=== PATIENT | female | born 1965 | race Caucasian/White ===

== ENCOUNTER 2019-12-14 08:26 | Outpatient (CLI) | payer OTHER, SELFPAY ==
--- NOTE | 2019-12-14 08:30 | ECG_ITS ---
Measurements Intervals [place] Rate: 62 P: 22 VA: 202 QRS: 37 QRSD: 74 T: 22 QT: 376 QTc: 384 Interpretive Statements SINUS RHYTHM BORDERLINE R WAVE PROGRESSION, ANTERIOR LEADS BASELINE ARTIFACT- I, II, III, AVR, AVL, AVF, V5-V6 BORDERLINE ECG Electronically Signed On 12-14-2019 8:46:42 [employer] HELPER by Amor Monte D.O.
[2019-12-14 09:53] LABS: Blood Urea Nitrogen 18 mg/dL (7-17); Calcium 9.2 mg/dL (8.4-10.2); Carbon Dioxide 24 mmol/L (22-30); Chloride 98 mmol/L (98-107); Estimated Glomerular Filt Rate > 60; Glucose 222 mg/dL (65-105); Potassium 4.2 mmol/L (3.4-5.0); Sodium 134 mmol/L (137-145)
[2019-12-14 10:29] LABS: Alanine Aminotransferase 21 U/L (4-35); Albumin Level 4.4 g/dL (3.5-5.1); Alkaline Phosphatase 104 U/L (38-126); Amylase 67 U/L (30-110); Aspartate Amino Transferase 33 U/L (14-36); Bilirubin,Total 0.5 mg/dL (0.2-1.3); Lipase 162 U/L (23-300)
== END 2019-12-14 08:27 | disposition home or self-care (01) ==
LOC: ANHSURGERY 08:30
PROVIDERS: Anesthesiology; PCP Nurse Practitioner; Visit Provider Surgery
DX: K81.9 Cholecystitis, unspecified (principal); I10 Essential (primary) hypertension; E11.9 Type 2 diabetes mellitus without complications
CPT/HCPCS: 36415; 80048; 80076; 82150; 83690; 86850; 86900; 86901; 93005

== ENCOUNTER 2019-12-23 00:18 | Day surgery (SDC) | payer OTHER, SELFPAY ==
[2019-12-13 13:38] VITALS: BMI 30.5
[2019-12-23] VITALS (9 sets, daily range): BP systolic 121–150; BP diastolic 73–83; PULSE 51–84; RESP 13–20; TEMP 36.3–36.4; O2SAT 94–100
--- NOTE | 2019-12-23 10:46 | WPDHPUPDATE1 ---
History and Physical Update Update Date/Time: 12/23/19 10:46 History and Physical has been reviewed, including an updated exam of the patient. There are NO changes in the patient's condition. Risks, benefits, and alternatives have been discussed and questions answered. Patient agrees to proceed with procedure.
[2019-12-23] MEDS: LACTATED RINGERS 1,000 ML 30 ML IV CONT ×2 (11:45→15:12)
[2019-12-23 11:49] LABS: Glucose Point of Care 215 (65-105)
--- NOTE | 2019-12-23 12:58 | WPDANESEPPF ---
Anes - Initial Pre Proc Eval Procedure: Operation Date: 12/23/19 13:30 Proposed Procedures p Laparoscopic Cholecystectomy - Tomasz Stephens MD Date/Time: 12/23/19 12:58 Surgeon: Tomasz Stephens MD Pre Op Diagnosis: Chronic Cholecystitis Patient Data Age: 54 Gender: F Height: 5 ft 7 in Weight: 90.4 kg Last Vital Signs Temp 36.4 C L 12/23/19 11:23 Pulse 70 12/23/19 11:23 Resp 20 12/23/19 11:23 BP 150/79 H 12/23/19 11:23 Pulse Ox 99 12/23/19 11:23 Allergies Allergy/AdvReac Type Severity Reaction Status Date / Time Penicillins Allergy Severe Swelling Verified 12/23/19 11:55 of Lip/Tongue/Throat tomato Allergy Severe Swelling Verified 12/13/19 13:38 of Lip/Tongue/Throat Home Medications Medication Instructions Recorded Confirmed Type amlodipine 10 mg PO QAM 10/20/19 12/13/19 History citalopram 40 mg PO QNOON 10/20/19 12/13/19 History ergocalciferol (vitamin D2) 50,000 unit PO WEEKLY 10/20/19 12/13/19 History famotidine 20 mg PO BID 10/20/19 12/13/19 History gemfibrozil 60 mg PO BID 10/20/19 12/13/19 History glipizide 5 mg PO QAM 10/20/19 12/13/19 History hydrochlorothiazide 25 mg PO QAM 10/20/19 12/13/19 History losartan 100 mg PO QAM 10/20/19 12/13/19 History meloxicam 7.5 mg PO QAM 10/20/19 12/13/19 History metformin 1,000 mg PO BID 10/20/19 12/13/19 History metformin 500 mg PO HS 10/20/19 12/13/19 History hyoscyamine sulfate [Levsin] 0.125 mg PO .every 6 hours prn PRN 10/21/19 12/13/19 Rx #30 tablet Laboratory Tests 12/23/19 11:44 POC Capillary Glucose 215 mg/dl H mg/dl (65-105) Patient hx anesthesia problems: none Family hx anesthesia problems: none PMFSH Past Medical History Medical History Cerebral palsied Depression Diabetes mellitus Dyslipidemia Hx of colonic polyps Hypertension Left-sided muscle weakness Vitamin D deficiency Surgical History Surgical History H/O colonoscopy History of hysterectomy Hx of release of tendon Family History Family History Father Diabetes mellitus Social History Social History Smoking status: Never smoker Alcohol intake: never Substance use: never Anes - Eval Final PreProcedure Day of Procedure 12/23/19 12:58 Heart: regular rate and rhythm Lungs: clear to auscultation Airway: Mallampati scale class II and special considerations poor dentition Neurological: alert and oriented Last oral intake: >/= 8 hours ASA classification: III Emergent: no Anesthetic plan: proceed Anesthesia type and monitoring: general ETT and standard monitoring Informed Consent: The patient's anesthetic plan and its attendant risks and benefits were discussed with the patient/family/POA. Questions were solicited and answers provided to the satisfaction of the patient/family/POA.
--- NOTE | 2019-12-23 13:39 | P.OP_ITS ---
Procedure Note - Detailed Date of procedure: 12/23/19 Pre-op diagnosis: Chronic Cholecystitis Acalculous chronic cholecystitis Post-op diagnosis: same Procedure performed: Laparoscopic cholecystectomy Description of procedure: The patient was taken to surgery and induced into general anesthesia. The abdomen was prepped and draped. Trocars were placed in the usual fashion using 0.5% Marcaine with epinephrine and applied Medical optical trocars. A 5 millimeter camera was used. Some adhesions to the gallbladder were taken down so that the entirety of the gallbladder was freed and able to be exposed. The gallbladder was decompressed with a laparoscopic aspirator. The cholecystotomy was closed with a Vicryl endo- loop. The gallbladder was retracted anterosuperiorly. The patient had signi ficant fatty liver and this was making the gallbladder difficult to expose. The liver was somewhat enveloping the gallbladder. An extra 5 mm port was placed in the left mid abdomen. From there, we used a laparoscopic Kitner to retract the medial segment of the left lobe. This retraction allowed the cholecystohepatic triangle and medial aspect of the gallbladder to be better visualized. Traction was placed on the infundibulum. The cystic duct and cystic artery were dissected out very clearly. The gallbladder was dissected off the liver at its lower 3rd. Critical view was achieved. The cystic artery was very small and was cauterized and divided. I securely clipped and divided the cystic duct. The gallbladder was then further retracted so that the peritoneal attachments to the liver could be divided. Once the gallbladder was freed entirely, it was placed in an Endo-Catch bag and retrieved through the 10 11 epigastric trocar site. The epigastric trocar was then replaced. We reviewed the right upper quadrant. It was irrigated and suctioned. All looked good with no evidence of bleeding or bile leakage. We evacuated CO2 and removed the trocar sleeves. Skin wounds were closed with subcuticular 4 O Monocryl skin suture. The wounds were dressed with Exofin surgical adhesive. Patient was awakened and taken to recovery in good condition. Sponge and needle counts were correct x2. Anesthesia: GETA and local (0.5% Marcaine with epinephrine) Surgeon: Tomasz Stephens MD Distribution Center Manager: [place] ALONSO Estimated blood loss (mL): 5 Drains: No Packing: No Pathology: yes (Gallbladder) Complications: None Condition: stable Disposition: PACU Findings: Mild inflammation, no gallstones noted. No biliary ductal dilatation. Significant fatty liver was apparent.
[2019-12-23] MEDS: CLINDAMYCIN 900 MG/NS 50 ML 900 MG/50 ML PIGGYBACK 50 MG IVPB (14:41)
[2019-12-23] MEDS: BUPIVACAINE/EPINEPHRINE 0.5% 30 ML VIAL INFILTRATE (14:45)
[2019-12-23 17:17] LABS: Glucose Point of Care 232 (65-105)
== END 2019-12-23 17:20 | disposition home or self-care (01) ==
PROVIDERS: PCP Nurse Practitioner; Visit Provider Surgery
PROC: 0FT44ZZ Resection of Gallbladder, Percutaneous Endoscopic Approach (ICD-10-PCS; CPT 47562; principal; 2019-12-23 13:30)
DX: K81.1 Chronic cholecystitis (principal); I10 Essential (primary) hypertension; E11.9 Type 2 diabetes mellitus without complications; E78.5 Hyperlipidemia, unspecified; G80.9 Cerebral palsy, unspecified; E55.9 Vitamin D deficiency, unspecified; M62.81 Muscle weakness (generalized); F32.9 Major depressive disorder, single episode, unspecified; Z79.84 Long term (current) use of oral hypoglycemic drugs
CPT/HCPCS: 47562; 88304; J0131; J1100; J1170; J2250; J2405; J2704; J2710; J3010; J7120

== ENCOUNTER 2020-10-18 07:27 | Outpatient (CLI) | payer MEDICARE, SELFPAY ==
[2020-10-18 08:42] LABS: Alanine Aminotransferase 26 U/L (14-59); Aspartate Amino Transferase 21 U/L (15-37); Cholesterol 274 mg/dL (0-200); HDL Direct 27 mg/dL (40-60)
[2020-10-18 08:46] LABS: LDL Cholesterol Calculated 88 mg/dL (<130); Triglycerides 795 mg/dL (0-150)
[2020-10-18 08:47] LABS: LDL Cholesterol Direct 110 mg/dL (0-130)
== END 2020-10-18 07:28 | disposition home or self-care (01) ==
LOC: CHSLAB 07:33
PROVIDERS: PCP Nurse Practitioner
DX: Z79.899 Other long term (current) drug therapy (principal); E78.2 Mixed hyperlipidemia
CPT/HCPCS: 36415; 80061; 83721; 84450; 84460

== ENCOUNTER 2021-02-14 07:33 | Outpatient (CLI) | payer MEDICARE, MEDICAID, SELFPAY ==
--- NOTE | ~2021-02-14 | MM_ITS ---
EXAMINATION: MM screening claudia BI w sivakumar HISTORY: Screening TECHNIQUE: Craniocaudal and mediolateral oblique 3-D tomosynthesis images were obtained and synthetic 2-D images were generated. CAD analysis was submitted and interpreted. COMPARISON: 02/23/2019 BREAST PARENCHYMAL COMPOSITION: There are scattered areas of fibroglandular density. FINDINGS: There is no evidence of suspicious mass, calcification, or architectural distortion to sugg est malignancy in either breast. There has been no suspicious interval change. IMPRESSION: 1. No mammographic evidence of malignancy. 2. Recommend routine screening mammography in one year. BI-RADS Category 1: Negative Reviewed, dictated and finalized at location A.
== END 2021-02-14 07:34 | disposition home or self-care (01) ==
LOC: CHSIMG 07:37
PROVIDERS: PCP Nurse Practitioner; Visit Provider Nurse Practitioner
DX: Z12.31 Encounter for screening mammogram for malignant neoplasm of breast (principal)
CPT/HCPCS: 77063; 77067

== ENCOUNTER 2021-02-16 10:25 | Outpatient (CLI) | payer MEDICARE, MEDICAID, SELFPAY | END 2021-02-16 10:26 | disposition home or self-care (01) | LOC: ANHCOVIDVC 10:25 | PROVIDERS: PCP Nurse Practitioner | DX: Z23 Encounter for immunization (principal) | CPT/HCPCS: 0001A; 91300 ==

== ENCOUNTER 2021-03-09 10:18 | Outpatient (CLI) | payer MEDICARE, MEDICAID, SELFPAY | END 2021-03-09 10:19 | disposition home or self-care (01) | LOC: ANHCOVIDVC 10:18 | PROVIDERS: PCP Nurse Practitioner | DX: Z23 Encounter for immunization (principal) | CPT/HCPCS: 0002A; 91300 ==

== ENCOUNTER 2021-08-10 12:01 | Outpatient (CLI) | payer MEDICARE, SELFPAY ==
--- NOTE | ~2021-08-10 | XR_ITS ---
EXAMINATION: XR knee LT 3V DATE: 08/10/2021 12:30 INDICATION: Acute left knee pain. TECHNIQUE: 3 views of left knee were obtained. COMPARISON: None. FINDINGS: Bone alignment is normal. No fracture. There is mild tricompartmental osteoarthritis of the knee. No knee joint effusion. IMPRESSION: 1. Mild left knee osteoarthritis. Reviewed, dictated and finalized at location A.
== END 2021-08-10 12:02 | disposition home or self-care (01) ==
LOC: CHSIMG 12:06
PROVIDERS: PCP Nurse Practitioner; Visit Provider Nurse Practitioner
DX: M25.562 Pain in left knee (principal)
CPT/HCPCS: 73562

== ENCOUNTER 2021-09-15 14:39 | Emergency (ER) | payer OTHER, SELFPAY ==
[2021-09-15 17:37] VITALS: BP 165/113; PULSE 91; RESP 20; TEMP 36.3; O2SAT 96
--- NOTE | 2021-09-15 17:54 | ED.DENTAL ---
HPI - Dental/Oral General Chief complaint: Dental/Oral Stated complaint: swollen jaw and lip area Source: patient Mode of arrival: ambulatory Limitations: no limitations History of Present Illness HPI Narrative: this is a 55-year-old female who presents with a chronic tooth decay he is having left jaw pain with tender swollen left submandibular gland with no fever chills no shortness of breath no audible wheezes does not feel that her throat is closing off with no nausea vomiting no headaches. Location: Tooth # Teeth map: 1. tooth decay with surrounding gum inflammation Onset (ago): hour(s) Duration: constant Severity: mild Relieving factors: nothing Exacerbating factors: nothing Related Data Home Medications Medication Instructions Recorded Confirmed amlodipine 10 mg PO QAM 10/20/19 09/15/21 citalopram 40 mg PO QNOON 10/20/19 09/15/21 ergocalciferol (vitamin D2) 50,000 unit PO WEEKLY 10/20/19 09/15/21 gemfibrozil 60 mg PO BID 10/20/19 09/15/21 glipizide 10 mg PO QAM 10/20/19 09/15/21 hydrochlorothiazide 25 mg PO QAM 10/20/19 09/15/21 losartan 100 mg PO QAM 10/20/19 09/15/21 metformin 1,000 mg PO BID 10/20/19 09/15/21 metformin 500 mg PO HS 10/20/19 09/15/21 omeprazole 40 mg PO DAILY 09/15/21 09/15/21 Allergies Allergy/AdvReac Type Severity Reaction Status Date / Time Penicillins Allergy Severe Swelling Verified 09/15/21 17:44 of Lip/Tongue/Throat tomato Allergy Severe Swelling Verified 09/15/21 17:44 of Lip/Tongue/Throat Review of Systems Review of Systems: All systems reviewed & are unremarkable except as noted in HPI and below PMFSH Past Medical History Medical History (Updated 09/15/21 @ 17:56 by Sergio Bledsoe MD) Cerebral palsied Depression Diabetes mellitus Dyslipidemia Hx of colonic polyps Hypertension Left-sided muscle weakness Vitamin D deficiency Surgical History Surgical History H/O colonoscopy History of hysterectomy Hx of release of tendon Family History Family History Father Diabetes mellitus Social History Social History Smoking status: Never smoker Alcohol intake: never Substance use: never Exam Const: General: no acute distress and alert Orientation/consciousness: patient oriented x3 HENMT: Head: normal to inspection Eyes: Conjunctivae: conjunctivae normal Pupils: Equal, round and reactive pupils present EOM: EOMs intact bilaterally Direct Ophthalmoscopy: no photophobia Neck: Neck: normal visual inspection, no lymphadenopathy and no meningeal signs Chest: Chest palpation & inspection: normal inspection of the chest Resp: Effort & Inspection: normal respiratory effort Auscultation: clear to auscultation bilaterally Cardio: Rate: regular rate Rhythm: regular rhythm GI: Auscultation: normal bowel sounds : General: Yes no CVA tenderness Urinary Catheter: Urinary Catheter: patent and draining Back/Spine/Pelvis: Back: no CVA tenderness Skin: General skin exam: normal color Rashes: no rashes Neuro: General: patient oriented x3 Extrem: General: normal to inspection and no pedal edema Psych: Appearance: grossly normal Mental Status: mental status grossly normal Affect: normal affect Course Course Emergency Course: Patient received 80mg IM Depo-Medrol and advised to take medicine as prescribed and follow-up with her primary care physician if symptoms persist. Vital Signs Vital signs: Vital Signs Temperature 36.3 C L 09/15/21 17:37 Pulse Rate 91 09/15/21 17:37 Respiratory Rate 20 09/15/21 17:37 Blood Pressure 165/113 H 09/15/21 17:37 Pulse Oximetry 96 09/15/21 17:37 Temperature 36.3 C L 09/15/21 17:37 Pulse Rate 91 09/15/21 17:37 Respiratory Rate 20 09/15/21 17:37 Blood Pressure 165/113 H 09/15/21 17:37 Pulse Oxi
[2021-09-15] MEDS: methylPREDNISolone ACETATE 40 MG/ML VIAL 80 MG IM (18:20)
[2021-09-15 18:22] VITALS: BP 131/98; PULSE 94; RESP 20; TEMP 37.1; O2SAT 98
== END 2021-09-15 18:28 | disposition home or self-care (01) ==
PROVIDERS: Emergency Provider Emergency Medicine; PCP Nurse Practitioner
DX: K04.7 Periapical abscess without sinus (principal); G80.9 Cerebral palsy, unspecified; E11.9 Type 2 diabetes mellitus without complications; I10 Essential (primary) hypertension; E55.9 Vitamin D deficiency, unspecified
CPT/HCPCS: 96372; 99283; J1030

== ENCOUNTER 2022-03-02 07:50 | Outpatient (CLI) | payer OTHER, SELFPAY ==
--- NOTE | ~2022-03-02 | MM_ITS ---
EXAMINATION: MM screening claudia BI w sivakumar HISTORY: Screening mammogram TECHNIQUE: Craniocaudal and mediolateral oblique 3-D tomosynthesis images were obtained and synthetic 2-D images were generated. CAD analysis was submitted and interpreted. COMPARISON: 02/14/2021, 02/23/2019 bilateral screening mammogram examinations BREAST PARENCHYMAL COMPOSITION: There are scattered areas of fibroglandular density. FINDINGS: There is no evidence of suspicious mass, calcification, or architectural distortion to sugg est malignancy in either breast. There has been no suspicious interval change. IMPRESSION: 1. No mammographic evidence of malignancy. 2. Recommend routine screening mammography in one year. BI-RADS Category 1: Negative Reviewed, dictated and finalized at location A.
== END 2022-03-02 07:51 | disposition home or self-care (01) ==
LOC: ANHIMG 07:51
PROVIDERS: PCP Nurse Practitioner; Visit Provider Nurse Practitioner
DX: Z12.31 Encounter for screening mammogram for malignant neoplasm of breast (principal)
CPT/HCPCS: 77063; 77067

== ENCOUNTER 2022-03-06 09:48 | Outpatient (RCR) | payer OTHER, SELFPAY | END 2022-04-26 09:57 | disposition home or self-care (01) | LOC: ANHDMC 09:48 | PROVIDERS: PCP Nurse Practitioner; Visit Provider Nurse Practitioner | DX: E11.9 Type 2 diabetes mellitus without complications (principal); Z71.89 Other specified counseling | CPT/HCPCS: 99199; G0108 ==

== ENCOUNTER 2023-01-22 11:07 | Outpatient (CLI) | payer OTHER, SELFPAY ==
[2023-01-22 17:36] LABS: LDL Cholesterol Direct 91 mg/dL
[2023-01-22 17:39] LABS: Triglycerides 699 mg/dL (<150)
[2023-01-22 17:40] LABS: Alanine Aminotransferase 32 U/L (6-35); Albumin Level 4.5 g/dL (3.5-5.1); Alkaline Phosphatase 81 U/L (38-126); Anion Gap 8 mmol/L (8-16); Aspartate Amino Transferase 50 U/L (14-36); Bilirubin,Total 1.1 mg/dL (0.2-1.3); Blood Urea Nitrogen 11 mg/dL (7-17); Calcium 9.4 mg/dL (8.4-10.2); Carbon Dioxide 26 mmol/L (22-30); Chloride 100 mmol/L (98-107); Cholesterol 253 mg/dL (0-200); Estimated Glomerular Filt Rate > 60; Glucose 135 mg/dL (65-110); Potassium 4.7 mmol/L (3.4-5.0); Sodium 134 mmol/L (137-145)
[2023-01-22 17:41] LABS: Free T4 Free Thyroxine 1.23 ng/mL (0.78-2.19)
[2023-01-22 18:11] LABS: Creatinine Urine 54.1 mg/dL
[2023-01-22 18:12] LABS: MALB Creatinine Ratio 20.7 mg/g (0-30); Microalbumin Urine Random 11.2 mg/L (0-16.7)
[2023-01-25 04:44] LABS: C-Peptide 2.34 ng/mL (0.80-3.85)
[2023-01-25 19:56] LABS: Glutamic acid decarboxylase AA <5 IU/mL (<5)
== END 2023-01-22 11:08 | disposition home or self-care (01) ==
LOC: ANHWCLAB 11:09
PROVIDERS: PCP Nurse Practitioner; Visit Provider Internal Medicine
DX: E11.9 Type 2 diabetes mellitus without complications (principal)
CPT/HCPCS: 36415; 80053; 80061; 82043; 84439; 84443; 84681; 86341

== ENCOUNTER 2023-02-28 07:24 | Outpatient (CLI) | payer OTHER, SELFPAY ==
--- NOTE | ~2023-02-28 | US_ITS ---
EXAMINATION: US soft tissue abdomen DATE: 02/28/2023 09:06 INDICATION: Umbilical hernia TECHNIQUE: Multiple grayscale and Doppler ultrasound images of the region of concern at the umbilicus were obtained. COMPARISON: CT abdomen pelvis dated 06/24/2019 FINDINGS: Again seen is a tiny umbilical hernia with herniated fat measuring up to 8 mm in maximal diameter. Th ere is a second slightly larger small supraumbilical ventral hernia which measures 2.6 x 1.8 x 0.8 cm maximal dimensions and extending through a 7 mm orifice. Both tiny umbilical and small supraumbilica l ventral hernias appear unchanged when compared with the earlier CT study. IMPRESSION: 1. No change since 2019 fat-containing tiny umbilical and small supraumbilical ventral hernias. Reviewed, dictated and finalized at location A.
== END 2023-02-28 07:25 | disposition home or self-care (01) ==
LOC: ANHIMG 07:29
PROVIDERS: PCP Nurse Practitioner; Visit Provider Physician Assistant
DX: K42.9 Umbilical hernia without obstruction or gangrene (principal)
CPT/HCPCS: 76705

== ENCOUNTER 2023-11-13 10:21 | Emergency (ER) | payer OTHER, SELFPAY ==
[2023-11-13 10:21] VITALS: BP 138/92; PULSE 68; RESP 17; TEMP 36.5; O2SAT 98
--- NOTE | 2023-11-13 10:29 | ED.EYEPROB ---
HPI - Eye Problem General Chief complaint: Eye Problems Stated complaint: pink eye Time Seen by Provider: 11/13/23 10:25 Source: patient Mode of arrival: ambulatory Limitations: no limitations History of Present Illness HPI Narrative: this is a 58-year-old female who presents with some irritation and redness of her right eye and has subsequently spread to the left eye with some surrounding erythema, has a history of diabetes, currently there is no overt visual changes patient does not wear contacts no conjunctivitis exposure. No fever chills currently no drainage from the the eyes, no chest pain no shortness of breath MD chief complaint: eye pain and eye redness Onset (ago): day(s) Onset description: gradual Duration: constant Location: both eyes Related Data Home Medications Medication Instructions Recorded Confirmed citalopram 40 mg tablet 40 mg PO QNOON 10/20/19 09/10/23 ergocalciferol (vitamin D2) 1,250 50,000 unit PO WEEKLY 10/20/19 09/10/23 mcg (50,000 unit) capsule hydrochlorothiazide 25 mg tablet 25 mg PO QAM 10/20/19 09/10/23 losartan 100 mg tablet 100 mg PO QAM 10/20/19 09/10/23 amlodipine 10 mg tablet 20 mg PO QAM 02/27/23 09/10/23 blood-glucose meter (OneTouch 06/10/23 09/10/23 Ultra2 Meter) insulin detemir U-100 100 unit/mL 8 unit subcut BID 09/10/23 09/10/23 (3 mL) subcutaneous pen (Levemir FlexTouch U-100 Insulin) Allergies Allergy/AdvReac Type Severity Reaction Status Date / Time Penicillins Allergy Severe Swelling Verified 11/13/23 10:42 of Lip/Tongue/Throat tomato Allergy Severe Swelling Verified 11/13/23 10:42 of Lip/Tongue/Throat Review of Systems Review of Systems: All systems reviewed & are unremarkable except as noted in HPI and below PMFSH Past Medical History Medical History Acalculous cholecystitis Cerebral palsied Depression Diabetes mellitus Dyslipidemia Hx of colonic polyps Hypertension Left-sided muscle weakness Type 2 diabetes, controlled, with neuropathy Vitamin D deficiency Surgical History Surgical History H/O colonoscopy History of hysterectomy Hx of release of tendon Family History Family History Father Diabetes mellitus Social History Social History Smoking status: Never smoker Alcohol intake: never Substance use: never Lack of Transportation: No Lack of Food: Never True Current Housing: Decline to Answer Concerned About Future Housing: No Difficulty Paying Gas/Electric Bills: No Difficulty Paying for Meds: No Currently Unemployed: No Education: High School Diploma/GED Difficulty w/ Childcare or Family Care: No Exam Const: General: healthy appearing and no acute distress Nutritional Appearance: well nourished Orientation/consciousness: patient oriented x3 Eyes: Conjunctivae: conjunctival abnormality ( bilateral conjunctival injection right greater left with surrounding Ghazala ) EOM: EOMs intact bilaterally Direct Ophthalmoscopy: no photophobia Neck: Neck: normal visual inspection, no lymphadenopathy and no meningeal signs Chest: Chest palpation & inspection: normal inspection of the chest Resp: Effort & Inspection: normal respiratory effort Auscultation: clear to auscultation bilaterally Cardio: Rhythm: regular rhythm Skin: Other: erythema around the bilateral eyes Course Course Emergency Course: patient has redness of the conjunctiva consistent with conjunctivitis, patient with history of diabetes and surrounding erythema could possibly P periorbital cellulitis and will treat with antibiotic eyedrops and p.o. antibiotics. Critical Care Time Critical Care Time Critical Care Time: No Discharge Plan Discharge Clinical Impression: Conjunctivitis Qualifie
[2023-11-13 10:50] VITALS: BP 138/92; PULSE 68; RESP 17; TEMP 36.5; O2SAT 98
== END 2023-11-13 10:50 | disposition home or self-care (01) ==
LOC: CHSED 10:41
PROVIDERS: Emergency Provider Emergency Medicine; PCP Physician Assistant
DX: H10.33 Unspecified acute conjunctivitis, bilateral (principal); E11.9 Type 2 diabetes mellitus without complications; I10 Essential (primary) hypertension; Z79.4 Long term (current) use of insulin
CPT/HCPCS: 99283

== ENCOUNTER 2024-11-11 16:39 | Emergency (ER) | payer MEDICARE, SELFPAY ==
[2024-11-11 16:46] VITALS: BP 163/89; PULSE 69; RESP 18; TEMP 36.7; O2SAT 94
--- NOTE | 2024-11-11 16:51 | ED_ITS ---
HPI - Wound/Laceration General Chief Complaint: Wound/Laceration Stated Complaint: FINGER LACERATION Time Seen by Provider: 11/11/24 16:51 Source: patient Mode of arrival: ambulatory Limitations: no limitations History of Present Illness HPI narrative: is a 59-year-old female presents with a avulsion injury to the tip of her right thumb occurred earlier today while using [employer], patient has no history of bleeding diathesis. Is up-to-date with her tetanus. No other injuries noted Onset (ago): hour(s) Place: home Patient tetanus UTD: Yes Context: accidental Related Data Home Medications ?Medication ?Instructions ?Recorded ?Confirmed ?Last Taken ?Type citalopram 40 mg tablet 40 mg PO QNOON 10/20/19 08/05/24 10/21/19 06:00 History ergocalciferol (vitamin D2) 1,250 50,000 unit PO WEEKLY 10/20/19 08/05/24 Unknown History mcg (50,000 unit) capsule hydrochlorothiazide 25 mg tablet 25 mg PO QAM 10/20/19 08/05/24 Unknown History losartan 100 mg tablet 100 mg PO QAM 10/20/19 08/05/24 Unknown History blood-glucose meter (OneTouch 06/10/23 08/05/24 Unknown History Ultra2 Meter) amlodipine 10 mg tablet 10 mg PO QAM 08/05/24 08/05/24 Unknown History carvedilol 12.5 mg tablet mg PO BID 08/05/24 08/05/24 Unknown History gabapentin 300 mg capsule mg PO TID PRN 08/05/24 08/05/24 Unknown History omeprazole 40 mg capsule,delayed mg PO 08/05/24 08/05/24 Unknown History release Allergies Allergy/AdvReac Type Severity Reaction Status Date / Time Penicillins Allergy Severe Swelling Verified 11/11/24 16:46 of Lip/Tongue/Throat tomato Allergy Severe Swelling Verified 11/11/24 16:46 of Lip/Tongue/Throat Review of Systems Review of Systems: All systems reviewed & are unremarkable except as noted in HPI and below PMFSH Past Medical History Medical History Type 2 diabetes, controlled, with neuropathy Acalculous cholecystitis Vitamin D deficiency Diabetes mellitus Dyslipidemia Hypertension Left-sided muscle weakness Cerebral palsied Depression Hx of colonic polyps Surgical History Surgical History H/O colonoscopy Hx of release of tendon History of hysterectomy Family History Family History Father Diabetes mellitus Social History Social History Smoking status: Never smoker Alcohol intake: never Substance use: never Lack of Transportation: No Lack of Food: Never True Current Housing: Decline to Answer Concerned About Future Housing: No Difficulty Paying Gas/Electric Bills: No Difficulty Paying for Meds: No Currently Unemployed: No Education: High School Diploma/GED Difficulty w/ Childcare or Family Care: No Exam Const: General: healthy appearing Nutritional Appearance: well nourished Orientation/consciousness: patient oriented x3 Chest: Chest palpation & inspection: normal inspection of the chest Resp: Effort & Inspection: normal respiratory effort Auscultation: clear to auscultation bilaterally Cardio: Rate: regular rate Rhythm: regular rhythm GI: GI Palp: Yes Soft to palpation Auscultation: normal bowel sounds Skin: General skin exam: normal color Rashes: no rashes Neuro: General: patient oriented x3 Extrem: General: normal to inspection Course Course Emergency Course: patient up-to-date with her tetanus and bandage placed over the right thumb. Vital Signs Vital signs: Vital Signs Temperature 36.7 C 11/11/24 16:46 Pulse Rate 69 11/11/24 16:46 Respiratory Rate 18 11/11/24 16:46 Blood Pressure 163/89 H 11/11/24 16:46 Pulse Oximetry 94 11/11/24 16:46 Oxygen Delivery Room Air 11/11/24 16:46 Temperature 36.7 C 11/11/24 16:46 Pulse Rate 69 11/11/24 16:46 Respiratory Rate 18 11/11/24 16:46 Blood Pressure 163/89 H 11/11/24 16:46 Pulse Oximetry 94 11/11/24 16:46 Oxygen Delivery Room Air 11/11/24 16:46 Critical Care Time Critical Care Time Critical Care Time: No Discharge Plan Discharge Clinical Impression: Avulsion injury Patient Disposition: Home, Self-Care Condition: Stable Instructions: Antibiotic Form, Skin Avulsion (ED) Additional Instructions: advised follow-up with primary care physician if symptoms persist or worsen. Patient Language: Romanian Prescriptions: No Action (DME) blood-glucose meter [OneTouch Ultra2 Meter] [facility] [place] See Rx Instructions .Route Rx Instructions: As directed Gvoke HypoPen 2-Pack 1 mg/0.2 mL auto-injector 1 mg subcut ONCE Qty: 0.4 0RF Rx Instructions: as a single dose; may repeat once after 15 minutes if no response (DME) True Metrix Glucose Test Strip Strip See Rx Instructions .Route Qty: 400 12RF Rx Instructions: 4 times daily carvedilol 12.5 mg tablet PO BID omeprazole 40 mg capsule,delayed release(DR/EC) PO gabapentin 300 mg capsule PO TID PRN icosapent ethyl 0.5 gram capsule 2 g PO BID Qty: 360 0RF amlodipine 10 mg tablet 10 mg PO QAM citalopram 40 mg tablet 40 mg PO QNOON hydrochlorothiazide 25 mg tablet 25 mg PO QAM ergocalciferol (vitamin D2) 1,250 mcg (50,000 unit) capsule 50,000 unit PO WEEKLY losartan 100 mg tablet 100 mg PO QAM (DME) OneTouch Ultra Test Strip See Rx Instructions .Route Qty: 400 1RF Rx Instructions: Check 4 times daily metformin 1,000 mg tablet See Rx Instructions .ROUTE .COMPLEX Qty: 180 0RF Dose Instruction: Take 1 tablet by mouth twice daily Rx Instructions: Take 1 tablet by mouth twice daily atorvastatin 10 mg tablet See Rx Instructions .ROUTE .COMPLEX Qty: 90 0RF Dose Instruction: Take 1 tablet by mouth once daily Rx Instructions: Take 1 tablet by mouth once daily Jardiance 25 mg tablet See Rx Instructions .ROUTE .COMPLEX Qty: 90 2RF Dose Instruction: Take 1 tablet by mouth once daily Rx Instructions: Take 1 tablet by mouth once daily fenofibrate 54 mg tablet See Rx Instructions .ROUTE .COMPLEX Qty: 90 0RF Dose Instruction: Take 1 tablet by mouth once daily Rx Instructions: Take 1 tablet by mouth once daily Ozempic 1 mg/dose (4 mg/3 mL) pen injector See Rx Instructions .ROUTE .COMPLEX Qty: 9 2RF Dose Instruction: INJECT 1 MG SUBCUTANEOUSLY ONCE A WEEK, EVERY 7 DAYS Rx Instructions: INJECT 1 MG SUBCUTANEOUSLY ONCE A WEEK, EVERY 7 DAYS Follow-up/Referrals: Abby,SERA Silva [Primary Care Provider] - Time of Disposition: 16:55
[2024-11-11] MEDS: NEOMYCIN/POLYMYXIN/BACITRACIN OINTMENT PACKET 1 PACKET (17:18)
== END 2024-11-11 17:22 | disposition home or self-care (01) ==
LOC: CHSED 17:10
PROVIDERS: Emergency Provider Emergency Medicine; PCP Physician Assistant
DX: S61.011A Laceration without foreign body of right thumb without damage to nail, initial encounter (principal); W26.8XXA Contact with other sharp object(s), not elsewhere classified, initial encounter
CPT/HCPCS: 99282

== ENCOUNTER 2024-12-06 08:23 | Outpatient (CLI) | payer MEDICARE, SELFPAY ==
--- OUTSIDE RECORDS SUMMARY | 2024-12-06 08:38 | XMS_ITS | Encounter Summary ---
Author Organization [facility] Address [address] [place] [address] Phone Care Team Providers Care Court Usher Name Role Phone Eli Dave APRN Primary Care Provider +1 [phone] Cherrie Stein APRN, FLAVORINGS COMPOUNDER Unavailable Reason for Visit * Reason Comments Medication Refill Encounter Details Date Type Department Care Team (Late st Contact Info) Description 06/29/2024 Refill [facility] - [place] #2 [place] [address] Cherrie Stein APRN, FLAVORINGS COMPOUNDER [address]2 [place] [address] Medication Refill Social History Tobacco Use Types Packs/Day Years Used Date Smoking Tobacco: Never Smokeless Tobacco: Never Alcohol Use Standard Drinks/Week Comments Not Currently 0 (1 standard drink = 0.6 oz pur e alcohol) AUDIT-C Answer Date Recorded Frequency of Alcohol Consumption Never 09/16/2019 Average Number of Drinks Not on file 019 Frequency of Binge Drinking Not on file 09/03 Sexually Active Control Partners Comments Not Currently Comments No Sex and Gender Information Value Date Recorded Sex Assigned at Not on file Legal Sex Female 8:20 AM CDT Gender Identity Not on file Sexual Orientation Not on file Occupation Industry Job Start Date Job End Date unemployed Not on file Not on file Not on file documented as of this encounter Miscellaneous Notes * Telephone Encounter - Helen Alexis RN - 06/29/2024 8:48 AM CDT Patient requesting refill too soon. Medication refused. documented in this encounter Plan of Treatment Not on file documented as of this encounter Visit Diagnoses Diagnosis Gastroesophageal reflux disease Esophageal reflux documented in this encounter Care Teams Court Usher Relationship Specialty Start Date End Date Eli Dave APRN [address] [address] PCP - General Certified Nurse Practitioner 09/16/19 Cherrie Stein APRN, FLAVORINGS COMPOUNDER [address]2 [place] [address] Nurse Practitioner Advanced Practice Nurse 01/13/23 documented as of this encounter
--- OUTSIDE RECORDS SUMMARY | 2024-12-06 08:38 | XMS_ITS | Encounter Summary ---
Author Organization [facility] Address [address] [place] [address] Phone Care Team Providers Care Building Inspection Engineer Name Role Phone Eli Dave APRN Primary Care Provider +1 [phone] Cherrie Stein APRN, MICA SPREADER Unavailable Reason for Visit * Reason Comments Medication Refill Encounter Details Date Type Department Care Team (Late st Contact Info) Description 04/02/2023 Refill [facility] - [facility] - [place] #2 [place] [address] Cherrie Stein APRN, MICA SPREADER [address]2 [place] [address] Medication Refill Social History Tobacco Use Types [...] Telephone Encounter - Helen Alexis RN - 04/02/2023 10:44 AM CDT Medication refilled and signed per [facility] chronic medication standing order for pediatric and adult patients. documented in this encounter Plan of Treatment Not on file documented as of this encounter Visit Diagnoses Diagnosis Gastroesophageal reflux disease Esophageal reflux documented in this encounter Care Teams Building Inspection Engineer Relationship Specialty Start Date End Date Eli Dave APRN [address] [address] PCP - General Certified Nurse Practitioner 09/16/19 Cherrie Stein APRN, MICA SPREADER [address]2 [place] [address] Nurse Practitioner Advanced Practice Nurse 01/13/23 documented as of this encounter
--- OUTSIDE RECORDS SUMMARY | 2024-12-06 08:38 | XMS_ITS | Encounter Summary ---
Author Organization [facility] Address [address] [place] [address] Phone Care Team Providers Care Acquisitions Logistics Analyst Name Role Phone Eli Dave APRN Primary Care Provider +1 [phone] Cherrie Stein APRN, CLINICAL PROFESSOR Unavailable Reason for Visit * Reason Comments Medication Refill Encounter Details Date Type Department Care Team (Late st Contact Info) Description 06/20/2022 Refill [facility] - Gastroenterology - [place] #2 [place] [address] Lucrecia Peterson PAC [address]2 [place] [address] Medication Refill Social History Tobacco Use Types [...] Telephone Encounter - Helen Alexis RN - 06/21/2022 1:00 PM CDT Patient requesting refill too soon. Medication refused. documented in this encounter Plan of Treatment Not on file documented as of this encounter Visit Diagnoses Diagnosis Gastroesophageal reflux disease Esophageal reflux documented in this encounter Care Teams Acquisitions Logistics Analyst Relationship Specialty Start Date End Date Eli Dave APRN [address] [address] PCP - General Certified Nurse Practitioner 09/16/19 Cherrie Stein APRN, CLINICAL PROFESSOR [address]2 [place] [address] Nurse Practitioner Advanced Practice Nurse 01/13/23 documented as of this encounter
--- OUTSIDE RECORDS SUMMARY | 2024-12-06 08:38 | XMS_ITS | Encounter Summary ---
Author Organization [facility] Address [address] [place] [address] Phone Care Team Providers Care Masonry Inspector Name Role Phone Eli Dave APRN Primary Care Provider +1 [phone] Cherrie Stein APRN, ANIMAL ANATOMIST Unavailable Reason for Visit * Reason Comments Medication Refill Encounter Details Date Type Department Care Team (Late st Contact Info) Description 08/09/2024 Refill [facility] - [facility]enterology - [place] #2 [place] [address] Cherrie Stein APRN, ANIMAL ANATOMIST #2 [place] [address] Medication Refill Social History Tobacco Use Types [...] Telephone Encounter - Helen Alexis RN - 08/10/2024 8:26 AM CDT Medication refilled and signed per [facility] chronic medication standing order for pediatric and adult patients. documented in this encounter Plan of Treatment Not on file documented as of this encounter Visit Diagnoses Diagnosis Gastroesophageal reflux disease Esophageal reflux documented in this encounter Care Teams Masonry Inspector Relationship Specialty Start Date End Date Eli Dave APRN [address] [address] PCP - General Certified Nurse Practitioner 09/16/19 Cherrie Stein APRN, ANIMAL ANATOMIST [address]2 [place] [address] Nurse Practitioner Advanced Practice Nurse 01/13/23 documented as of this encounter
--- OUTSIDE RECORDS SUMMARY | 2024-12-06 08:38 | XMS_ITS | Encounter Summary ---
Author Organization [facility] Address [facility] [place] [address] [place] [address] Care Team Providers Care Eap Consultant Name Role Phone Eli Dave [facility] Primary Care Provider [phone] Seferino Mata MD Unavailable Unavailabl e Willa Osborne MD Unavailable Stephenie Perez MD Unavailable Encounter Details Date Type Department Care Team (Late st Contact Info) Description 09/06/2022 Abstract [facility] [address] [place] [phone] Seferino Mata MD Social History Tobacco Use Types Packs/Day Years Used Date Smoking Tobacco: Never Smokeless Tobacco: Never Alcohol Use Standard Drinks/Week Comments No 0 (1 standard drink = 0.6 oz pur e alcohol) Comments Unknown Sex and Gender Information Value Date Recorded Sex Assigned at Female 03/01/2019 10:10 AM CDT Legal Sex Female 2:03 PM CDT Gender Identity Female 03/01/2019 10:10 AM CDT Sexual Orientation Not on file Occupation Industry Job Start Date Job End Date Not on file Not on file Not on file Not on file documented as of this encounter Plan of Treatment Upcoming Encounters Date Type Department Care Team (Late st Contact Info) Description 12/08/2024 10:00 AM SORTING MACHINE ATTENDANT [facility]ointment [facility] [address] [place] [address] Stephenie Perez MD [address] [place] [address] 01/10/2025 1:15 PM CDT Office Visit [facility] [address] [place] [address] Stephenie Perez MD [address] [place], [place] [id number] 10/21/2025 8:45 AM SORTING MACHINE ATTENDANT Office Visit [place] [address] [place] [address] Stephenie Perez MD [address] [place], [place] [id number] documented as of this encounter Procedures Procedure Name Priority Date/Time Associated Diagnosis Comments CMP (ABSTRACTED LAB) Routine 08/30/2022 CBC (OUTSIDE LAB) Routine 08/30/2022 HEMOGLOBIN, GLYCOSYLATED Routine 08/30/2022 LIPID PANEL Routine 08/30/2022 VITAMIN D, 25 OH Routine 08/30/2022 documented in this encounter Results * CBC (OUTSIDE LAB) (08/30/2022) Pathologist [facility] WBC 7.8 3.4 - 10.8 HGB 14.8 11.1 - 15.9 HCT 43.5 34.0 - 46.6 PLT 217 150 - 450 RBC 5.01 3.77 - 5.28 08/30/2022 us Default History Genericprovider LAB-OUTSIDE/ABST RACTED Final Result * CMP (ABSTRACTED LAB) (08/30/2022) Pathologist [facility] SODIUM S/P/B 133 134 - 144 POTASSIUM S/P/B 4.9 3.5 - 5.2 CHLORIDE S/P/B 95 96 - 106 CO2 25 20 - 29 BUN 16 6 - 24 CREATININE S/P/B 0.64 0.57 - 1.00 CALCIUM S/P/B 10.1 8.7 - 10.2 GLUCOSE 204 70 - 99 mg/dL TOTAL PROTEIN S/P/B 7.9 6.0 - 8.5 ALBUMIN S/P/B 4.7 3.8 - 4.9 AST 23 0 - 40 ALT 20 0 - 32 ALKALINE PHOSPHATASE S/P/B 82 44 - 121 BILIRUBIN TOTAL S/P/B 0.9 0.0 - 1.2 08/30/2022 us Default History Genericprovider LAB-OUTSIDE/ABST RACTED Final Result * LIPID PANEL (08/30/2022) Pathologist [facility] CHOLESTEROL 296 100 - 199 HDL 26 >39 TRIGLYCERIDES 1,183 0 - 149 08/30/2022 us Default History Genericprovider LABORATORY Final Result * HEMOGLOBIN, GLYCOSYLATED (08/30/2022) Pathologist [facility] HGB A1C 8.8 4.8 - 5.6 % 08/30/2022 us Default History Genericprovider LABORATORY Final Result * VITAMIN D, 25 OH (08/30/2022) Pathologist [facility] VITAMIN D 25 HYDROXY S/P/B 13.9 30.00 - 100.0 08/30/2022 us Default History Genericprovider LABORATORY Final Result documented in this encounter Visit Diagnoses Not on filedocumented in this encounter Care Teams Eap Consultant Relationship Specialty Start Date End Date Eli Dave FNP-BC [address] [place] [address] PCP - General NURSE PRACTITIONER 05/25/18 Seferino Mata MD [address] [place], [place] [id number] [place] [address] Chemistry Physics Teacher CARDIOVASCULAR DISEASE 05/25/18 02/24/24 Willa Osborne MD [address] [place] [address] Consulting Physician CARDIOVASCULAR DISEASE 02/07/21 1 Stephenie Perez MD [address] [place] [address] Consulting Physician CARDIOVASCULAR DISEASE 02/25/24 documented as of this encounter
--- OUTSIDE RECORDS SUMMARY | 2024-12-06 08:38 | XMS_ITS | Encounter Summary ---
Author Organization [facility] Address [address] [place] [address] Phone Care Team Providers Care Stationary Equipment Mechanic Name Role Phone Eli Dave APRN Primary Care Provider [phone] [phone] Cherrie Stein APRN, MANAGER CALL CENTER Unavailable Reason for Visit * Reason Comments Medication Refill Encounter Details Date Type Department Care Team (Late st Contact Info) Description 12/15/2023 Refill [facility] - [facility] - [place] #2 [place] [address] Cherrie Stein APRN, MANAGER CALL CENTER #2 [place] [address] Medication Refill Social History Tobacco Use Types [...] Telephone Encounter - Helen Alexis RN - 12/15/2023 3:59 PM RADIOLOGIC TECHNICIAN Medication refilled and signed per [facility] chronic medication standing order for pediatric and adult patients. OLOGIC TECHNICIAN documented in this encounter Plan of Treatment Not on file documented as of this encounter Visit Diagnoses Diagnosis Gastroesophageal reflux disease Esophageal reflux documented in this encounter Care Teams Stationary Equipment Mechanic Relationship Specialty Start Date End Date Eli Dave APRN [address] [address] PCP - General Certified Nurse Practitioner 09/16/19 Cherrie Stein APRN, MANAGER CALL CENTER [address] [place] [address] Nurse Practitioner Advanced Practice Nurse 01/13/23 documented as of this encounter
--- OUTSIDE RECORDS SUMMARY | 2024-12-06 08:38 | XMS_ITS | Encounter Summary ---
Author Organization [facility] Address [address] [place] [address] Phone Care Team Providers Care Corporate Compliance Director Name Role Phone Eli Dave APRN Primary Care Provider +1 [phone] Cherrie Stein APRN, CLUB LICENSEE Unavailable Reason for Visit * Reason Comments Medication Refill Encounter Details Date Type Department Care Team (Late st Contact Info) Description 10/06/2024 Refill [facility] - Gastroenterology - [place] #2 [place] [address] Cherrie Stein APRN, CLUB LICENSEE [address] [place] [address] Medication Refill Social History Tobacco Use Types [...] Telephone Encounter - Helen Alexis RN - 10/06/2024 9:19 AM JUNIOR NET DEVELOPER Medication refilled and signed per [facility] chronic medication standing order for pediatric and adult patients. OR NET DEVELOPER documented in this encounter Plan of Treatment Not on file documented as of this encounter Visit Diagnoses Diagnosis Gastroesophageal reflux disease Esophageal reflux documented in this encounter Care Teams Corporate Compliance Director Relationship Specialty Start Date End Date Eli Dave APRN [address] [address] PCP - General Certified Nurse Practitioner 09/16/19 Cherrie Stein APRN, CLUB LICENSEE [address] [place] [address] Nurse Practitioner Advanced Practice Nurse 01/13/23 documented as of this encounter
--- OUTSIDE RECORDS SUMMARY | 2024-12-06 08:38 | XMS_ITS | Encounter Summary ---
Author Organization [facility] Address [facility] [place] [address] [place] [address] Care Team Providers Care Automotive Manager Name Role Phone Eli Dave [facility] Primary Care Provider + -[phone] Seferino Mata MD Unavailable Unavailabl e Willa Osborne MD Unavailable Stephenie Perez MD Unavailable Encounter Details Date Type Department Care Team (Late st Contact Info) Description 06/01/2020 Abstract [facility] [address] [place] [phone] Abstract, Doc [facility] Social History Tobacco Use Types Packs/Day Years [...] AM CDT Sexual Orientation Not on file documented as of this encounter Plan of Treatment Upcoming Encounters Date Type Department Care Team (Late st Contact Info) Description 12/08/2024 10:00 AM HOTEL OFFICE MANAGER [facility]ointment [facility] [address] Stephenie Perez MD [address] [place] [address] 01/10/2025 1:15 PM CDT Office Visit [facility] [place] [phone] Stephenie Perez MD [address] [place], [place] [id number] 10/21/2025 8:45 AM HOTEL OFFICE MANAGER Office Visit [facility] [address] [place] [phone] Stephenie Perez MD [address] [place], [place] [phone] documented as of this encounter Procedures Procedure Name Priority Date/Time Associated Diagnosis Comments LIPID PANEL (OUTSIDE LAB) Routine 05/23/2020 CMP (ABSTRACTED LAB) Routine 05/23/2020 VITAMIN D 25 OH (ABSTRACTED) Routine 05/23/2020 HEMOGLOBIN, GLYCOSYLATED Routine 05/23/2020 CBC W/DIFF AUTOMATED Routine 05/23/2020 documented in this encounter Results * CBC W/DIFF AUTOMATED (05/23/2020) WBC 8.1 RBC 4.56 HGB 14.2 HCT 39.9 MCV 88 MCH 31.1 MCHC 35.6 RDW 13.5 PLT 232 NEUTROPHILS % 62 LYMPHOCYTES % 26 MONOCYTES % 8 EOSINOPHILS % 2 BASOPHILS % 1 ABS. NEUTROPHILS 5.1 ABS. LYMPHOCYTES 2.1 ABS. MONOCYTES 0.6 ABS. BASOPHILS 0.1 05/23/2020 us Doc [facility] Abstract LABORATORY Final Result * (ABNORMAL) CMP (ABSTRACTED LAB) (05/23/2020) SODIUM S/P/B 133 POTASSIUM S/P/B 4.5 CHLORIDE S/P/B 95 CO2 21 BUN 13 CREATININE S/P/B 0.68 0.5 - 1.0 EGFR AFR. AMER. 115(A) <=90 EGFR NON-AFR. AMER. 99(A) <=90 CALCIUM S/P/B 10.2 GLUCOSE 227 mg/dL TOTAL PROTEIN S/P/B 8.4 ALBUMIN S/P/B 4.7 3.5 - 5.0 AST 29 ALT 24 ALKALINE PHOSPHATASE S/P/B 109 BILIRUBIN TOTAL S/P/B 0.5 05/23/2020 us Doc [facility] Abstract LAB-OUTSIDE/ABSTRACTED Final Result * LIPID PANEL (OUTSIDE LAB) (05/23/2020) CHOLESTEROL 321 TRIGLYCERIDES 2,197 HDL 19 05/23/2020 us Doc [facility] Abstract LAB-OUTSIDE/ABSTRACTED Final Result * HEMOGLOBIN, GLYCOSYLATED (05/23/2020) Pathologist [facility] HGB A1C 8.8 % 05/23/2020 us Doc [facility] Abstract LABORATORY Final Result * VITAMIN D 25 OH (ABSTRACTED) (05/23/2020) VITAMIN D 25 HYDROXY TOTAL S/P/B 11.1 05/23/2020 us Doc [facility] Abstract LAB-OUTSIDE/ABSTRACTED Final Result documented in this encounter Visit Diagnoses Not on filedocumented in this encounter Care Teams Automotive Manager Relationship Specialty Start Date End Date Eli Dave FNP- [address] [place] [address] PCP - General NURSE PRACTITIONER 05/25/18 Seferino Mata MD [address] [place] [address] [employer] Office Manager CARDIOVASCULAR DISEASE 05/25/18 02/24/24 Willa Osborne MD [address] [place] [address] Consulting Physician CARDIOVASCULAR DISEASE 02/07/21 1 Stephenie Perez MD [address] [place] [address] Consulting Physician CARDIOVASCULAR DISEASE 02/25/24 documented as of this encounter
--- OUTSIDE RECORDS SUMMARY | 2024-12-06 08:38 | XMS_ITS | Encounter Summary ---
Author Organization [facility] Address [address] [place] [address] Phone Care Team Providers Care Shot Lighter Name Role Phone Eli Dave APRN Primary Care Provider +1 -[phone] Cherrie Stein APRN, BATT MACHINE OPERATOR Unavailable Reason for Visit * Reason Comments Medication Refill Encounter Details Date Type Department Care Team (Late st Contact Info) Description 06/04/2022 Refill [facility] - Gastroenterology - [place] #2 [place] [address] Lucrecia Peterson PAC #2 [place] [address] Medication Refill Social History Tobacco Use Types [...] Telephone Encounter - Helen Alexis RN - 06/05/2022 1:17 PM CDT Medication refilled and signed per [facility] chronic medication standing order for pediatric and adult patients. documented in this encounter Plan of Treatment Not on file documented as of this encounter Visit Diagnoses Diagnosis Gastroesophageal reflux disease Esophageal reflux documented in this encounter Care Teams Shot Lighter Relationship Specialty Start Date End Date Eli Dave APRN [address] [address] PCP - General Certified Nurse Practitioner 09/16/19 Cherrie Stein APRN, BATT MACHINE OPERATOR [address] [place] [address] Nurse Practitioner Advanced Practice Nurse 01/13/23 documented as of this encounter
--- OUTSIDE RECORDS SUMMARY | 2024-12-06 08:38 | XMS_ITS | Encounter Summary ---
Author Organization [facility] Address [facility] [address] [place] [address] Care Team Providers Care Light Rail Transit Operator Name Role Phone Eli Dave [facility] Primary Care Provider [phone] Seferino Mata MD Unavailable Unavailabl e Willa Osborne MD Unavailable Stephenie Perez MD Unavailable Encounter Details Date Type Department Care Team (Late st Contact Info) Description 08/12/2018 Abstract [facility] [address] [place] [phone] Seferino Mata MD Social History Tobacco Use [...] st Contact Info) Description 12/08/2024 10:00 AM FIXER BOARDING ROOM [facility]ment [facility] [place] [address] Stephenie Perez MD [address] [place] [address] 01/10/2025 1:15 PM CDT Office Visit [facility] [place] [phone] Stephenie Perez MD [address] [place] [address] 10/21/2025 8:45 AM FIXER BOARDING ROOM Office Visit [facility] [place] [phone] Stephenie Perez MD [address] [place], [place] [address] documented as of this encounter Procedures Procedure Name Priority Date/Time Associated Diagnosis Comments LIPID PANEL Routine 08/11/2018 documented in this encounter Results * LIPID PANEL (08/11/2018) CHOLESTEROL 192 HDL 31 TRIGLYCERIDES 380 CHOL/HDL RATIO 6.2 LDL (CALCULATED) 85 AST 16 GPT/ALT 24 TSH 4.2 FREE T4 0.99 TOTAL CK 46 08/11/2018 us Doc [facility] Abstract LABORATORY Final Result documented in this encounter Visit Diagnoses Not on filedocumented in this encounter Care Teams Light Rail Transit Operator Relationship Specialty Start Date End Date Tenzin Eli, [facility]- [address] [place] [id number] PCP - General NURSE PRACTITIONER 05/25/18 Seferino Mata MD [address] [place] [address] [place] White Washer Piler CARDIOVASCULAR DISEASE 05/25/18 02/24/24 Willa Osborne MD [address] [place] [address] Consulting Physician CARDIOVASCULAR DISEASE 02/07/21 1 Stephenie Perez MD [address] [place] [address] Consulting Physician CARDIOVASCULAR DISEASE 02/25/24 documented as of this encounter
--- OUTSIDE RECORDS SUMMARY | 2024-12-06 08:38 | XMS_ITS | Encounter Summary ---
Author Organization [facility] Address [address] [place] [address] Phone Care Team Providers Care Telegraphic Instrument Supervisor Name Role Phone Eli Dave APRN Primary Care Provider +1 -[phone] Cherrie Stein APRN, COLLECTION ADMINISTRATOR Unavailable Reason for Visit * Reason Comments Medication Refill Encounter Details Date Type Department Care Team (Late st Contact Info) Description 02/22/2022 Refill [facility] - [facility]astroenterology - [place] #2 [place] [address] Lucrecia Peterson PAC [address] [place] [address] Medication Refill Social History Tobacco Use Types [...] Telephone Encounter - Helen Alexis RN - 02/25/2022 8:41 AM CDT Medication refilled and signed per [facility] chronic medication standing order for pediatric and adult patients. documented in this encounter Plan of Treatment Not on file documented as of this encounter Visit Diagnoses Diagnosis Gastroesophageal reflux disease Esophageal reflux documented in this encounter Care Teams Telegraphic Instrument Supervisor Relationship Specialty Start Date End Date Eli Dave APRN [address] [address] PCP - General Certified Nurse Practitioner 09/16/19 Cherrie Stein APRN, COLLECTION ADMINISTRATOR [address] [place] [address] Nurse Practitioner Advanced Practice Nurse 01/13/23 documented as of this encounter
--- OUTSIDE RECORDS SUMMARY | 2024-12-06 08:38 | XMS_ITS | Encounter Summary ---
Author Organization [facility] Address [address] [place] [address] Phone Care Team Providers Care Paper Gluing Operator Name Role Phone Eli Dave APRN Primary Care Provider [phone] [phone] Cherrie Stein APRN, STEAM FITTER HELPER Unavailable Reason for Visit * Reason Comments Medication Refill Encounter Details Date Type Department Care Team (Late st Contact Info) Description 06/21/2024 Refill [facility] - [facility] - [place] #2 [place] [address] Cherrie Stein APRN, STEAM FITTER HELPER [address] [place] [address] Medication Refill Social History Tobacco Use Types [...] encounter Miscellaneous Notes * Telephone Encounter - Hleen Alexis RN - 06/21/2024 11:19 AM CDT Medication refilled and signed per [facility] chronic medication standing order for pediatric and adult patients. documented in this encounter Plan of Treatment Not on file documented as of this encounter Visit Diagnoses Diagnosis Gastroesophageal reflux disease Esophageal reflux documented in this encounter Care Teams Paper Gluing Operator Relationship Specialty Start Date End Date Eli Dave APRN [address] [address] PCP - General Certified Nurse Practitioner 09/16/19 Cherrie Stein APRN, STEAM FITTER HELPER [address] [place] [address] Nurse Practitioner Advanced Practice Nurse 01/13/23 documented as of this encounter
--- OUTSIDE RECORDS SUMMARY | 2024-12-06 08:38 | XMS_ITS | Clinical Summary ---
Author Organization [facility] Address [facility] [place] [address] [place] [address] Care Team Providers Care Marketing Intelligence Manager Name Role Phone Eli Dave [facility] Primary Care Provider [phone] [phone] Stephenie Knowles MD Unavailable Allergies Active Allergy Reactions Criticality Noted Date Comments Penicillins Swelling High 12/05/2014 Medications citalopram (CELEXA) 40 MG tablet take 1 tablet by oral route once every day at 3:00 pm 8 Active metFORMIN (GLUCOPHAGE) 1000 MG tablet Take 1 tablet (1,000 mg total) by mouth every 12 (twelve) hours. 8 Active vitamin D2, ergocalciferol , 76032 UNITS capsule Take 1 capsule (1.25 mg total) by mouth once a week. 8 Active amlodipine 10 MG tablet Take 10 mg by mouth daily. Active MM TWIST LANCETS Misc 9 Active atorvastatin (LIPITOR) 80 MG tablet Take 1 tablet (80 mg total) by mouth nightly at bedtime. 90 tablet 1 0 Active fish oil 1000 MG Cap capsule Take 1 capsule (1,000 mg total) by mouth 2 (two) times daily. 180 capsule 1 0 Active omeprazole (PRILOSEC) 40 MG capsule Take 1 capsule (40 mg total) by mouth daily. 2 Active hydroCHLOROthi azide (HYDRODIURIL) 25 MG tablet Take 1 tablet (25 mg total) by mouth daily. 2 Active losartan (COZAAR) 100 MG tablet Take 1 tablet (100 mg total) by mouth daily. 2 Active JARDIANCE 25 MG tablet Take 1 tablet (25 mg total) by mouth daily. 3 Active fenofibrate (TRICOR) 54 MG tablet Take 1 tablet (54 mg total) by mouth daily. 3 Active BD PEN NEEDLE POORNIMA 2ND GEN 32G X 4 MM Misc USE NEW PEN NEEDLE WITH EACH INSULIN INJECTION ONCE DAILY 3 Active OZEMPIC, 0.25 OR 0.5 MG/DOSE, 2 MG/3ML injection (PEN) INJECT 0.5MG SUBCUTANEOUSLY ONCE A WEEK, EVERY 7 DAYS 3 Active Alcohol Swabs (B-D SINGLE USE SWABS REGULAR) Pads CLEAN SKIN WITH ALCOHOL PAD PRIOR TO EACH INSULIN INJECTION 3 Active Cholecalcifero l (VITAMIN D3) 50 MCG (1999) Cap Take 1 capsule by mouth daily. 3 Active Blood Glucose Monitoring Suppl (TRUE METRIX AIR GLUCOSE METER) w/Device Kit Active carvedilol (COREG) 25 MG tablet Take 1 tablet (25 mg total) by mouth 2 (two) times daily. 60 tablet 11 4 Active Active Problems Problem Noted Date Diagnosed Date Encounter for postoperative care 03/12/2019 S/P colonoscopy 03/12/2019 Tubular adenoma 03/12/2019 Internal hemorrhoids 03/12/2019 Type 2 diabetes mellitus wit hout complication, without long-term current use of insulin ([facility]) 03/01/2019 Numbness and tingling in left hand 03/01/2019 BMI 32.0-32.9,adult 03/01/2019 Cerebral palsy ([facility]) 11/05/2018 Hyperglycemia 03/18/2016 Essential hypertension 09/05/2015 Depressive disorder 12/05/2014 Hyperlipidemia Resolved Problems Problem Noted Date Diagnosed Date Resolved Date Encounter for screening colonoscopy 03/01/2019 03/12/2019 Cellulitis of abdominal wall 02/26/2018 03/01/2019 Pain in toe 09/05/2015 03/01/2019 Borderline blood pressure 12/05/2014 Encounters Date Type Department Care Team Description 11/22/2024 Telephone [facility] [address] [place] [address] Stephenie Knowles MD Reschedule 10/15/2024 12:00 PM SEWER LINE PHOTO INSPECTOR Office Visit [facility] [address] [place] [address] Stephenie Knowles MD Follow Up 10/15/2024 11:18 AM SEWER LINE PHOTO INSPECTOR - 10/15/2024 11:59 PM SEWER LINE PHOTO INSPECTOR Hospital Encounter [facility] [address] [place] [address] Stephenie Knowles MD Discharge Disposition: Home or Self Care (Routine Discharge) 10/15/2024 Telephone [facility] [address] [place] [address] Stephenie Knowles MD Schedule Test 10/15/2024 Orders Only [facility] [address] [place] [address] Stephenie Knowles MD 10/15/2024 Travel 10/11/2024 Orders Only [facility] [address] [place] [address] Stephenie Knowles MD from Last 3 Months Immunizations Name Administration Dates Next Due Influenza Adult (Generic) 07/31/2016 Family History Medical History Relation Comments Colon Cancer Neg Hx Relation Status Comments Brother Alive Father congestive heart failure, diabetes mellitus Mother Social History Tobacco Use Types Packs/Day Years [...] file Not on file Not on file Last Filed Vital Signs Vital Sign Reading Time Taken Comments Blood Pressure 138/66 10/15/2024 3:44 PM SEWER LINE PHOTO INSPECTOR Pulse 90 10/15/2024 3:44 PM SEWER LINE PHOTO INSPECTOR Temperature 36.2 ??C (97.1 ??F) 03/15/2019 1:19 PM CD T Respiratory Rate 16 10/15/2024 3:44 PM SEWER LINE PHOTO INSPECTOR Oxygen Saturation 98% 10/15/2024 3:44 PM SEWER LINE PHOTO INSPECTOR Inhaled Oxygen Concentration - - Weight 79.4 kg (175 lb) 10/15/2024 3:44 PM SEWER LINE PHOTO INSPECTOR Height 170.2 cm (5' 7 ) 10/15/2024 3:44 PM SEWER LINE PHOTO INSPECTOR Body Mass Index 27.41 10/15/2024 3:44 PM SEWER LINE PHOTO INSPECTOR Plan of Treatment Upcoming Encounters Date Type Department Care Team (Late st Contact Info) Description 12/08/2024 10:00 AM SEWER LINE PHOTO INSPECTOR Appointment [facility] [address] [place], [place] [address] [address] Stephenie Knowles MD [address] [place], [place] [id number] 01/10/2025 1:15 PM CDT Office Visit [facility] [place] [address] [place] [address] Stephenie Knowles MD [address] [place] [address] 10/21/2025 8:45 AM SEWER LINE PHOTO INSPECTOR Office Visit [facility] [place] [address] [place] [address] Stephenie Knowles MD [address] [place], [place] [address] [phone] Health Maintenance Due Date Last Done Comments Kidney Health Evaluation 1965 Annual Physical 1968 Pneumococcal Vaccine: Pediatrics (0 to 5 Years) and At-Risk Patients (6 to 64 Years) (1 of 2 - PCV) 1971 Diabetes: Retinopathy Eye Exam 1983 Hepatitis C 1983 DTaP, Tdap and Td Vaccines (1 - Tdap) 1984 Mammogram Screening 2005 Zoster Vaccines (1 of 2) 2015 Hemoglobin A1C 02/28/2023 08/30/2022, 05/23/2020 Lipid Panel 08/30/2023 08/30/2022, 10/03, 07/26/2020, Additional history exists COVID-19 Vaccine (1 - 4-25 season) 2024 Influenza Adult (#1) 2024 08/09/2021, 08/21/2018, 07/31/2016, Additional history exists Colorectal Cancer Screening Colonoscopy (10 Years) 03/08/2029 03/08/2019 Meningococcal B Vaccine Aged Out No l onger eligible based on patient's age to complete this topic Meningococcal Vaccine Aged Out No loyd oleg eligible based on patient's age to complete this topic RSV Immunizations Under 20 Months Aged Out No longer eligible based on patient's age to complete this topic Procedures Procedure Name Priority Date/Time Associated Diagnosis Comments ECG 12-LEAD Routine 10/15/2024 11:25 AM SEWER LINE PHOTO INSPECTOR Essential hypertension LIPID PANEL Routine 08/30/2022 HEMOGLOBIN, GLYCOSYLATED Routine 08/30/2022 COLONOSCOPY GENERIC (SCAN ORDER) Routine 03/08/2019 from Last 3 Months or Most Recently Relevant to Health Maintenance Results * ECG 12 lead (HOSPITAL PERFORMED ONLY) (10/15/2024 11:25 AM SEWER LINE PHOTO INSPECTOR) 10/15/2024 11:2 5 AM SEWER LINE PHOTO INSPECTOR Narrative [facility] - 10/15/2024 10:20 PM SEWER LINE PHOTO INSPECTOR ? [facility] ?[address] [place] ??[address] ? Test Date: ?2024-10-15 Pat Name: ? CHERRIE FLOYD ? Department: ?? 3 ? Room: ? Gender: ? Female ? International Sales Representative: ?? SB : ?1965 ? Requested By: STEPHENIE KNOWLES Order Number: [id number] ? Reading MD: ?? Stephenie Knowles ? Measurements Intervals ?Outing ? Rate: ? 61 ? P: ?42 ND: ? 186 ?QRS: ?54 QRSD: ? 93 ? T: ?48 QT: ? 398 ? QTc: ?401 ? Interpretive Statements SINUS RHYTHM R LINE PHOTO INSPECTOR Procedure Note Stephenie Knowles MD - 10/15/2024 [facility] [address] [place] [address] Test Date: 2024-10-15 Pat Name: CHERRIE FLOYD Department: 3 Room: Gender: Female International Sales Representative: SB : 1965 Requested By: STEPHENIE KNOWLES Order Number: [id number] Reading MD: Stephenie Knowles Measurements Intervals Outing Rate: 61 P: 42 ND: 186 QRS: 54 QRSD: 93 T: 48 QT: 398 QTc: 401 Interpretive Statements SINUS RHYTHM R LINE PHOTO INSPECTOR us Stephenie Knowles MD ECG ORDERABLES Final Result [facility] * HEMOGLOBIN, GLYCOSYLATED (08/30/2022) HGB A1C 8.8 4.8 - 5.6 % 08/30/2022 us Default History Genericprovider LABORATORY Final Result * LIPID PANEL (08/30/2022) CHOLESTEROL 296 100 - 199 HDL 26 >39 TRIGLYCERIDES 1,183 0 - 149 08/30/2022 us Default History Genericprovider LABORATORY Final Result * COLONOSCOPY (03/08/2019) us Documents Scanned SCANNING Final Result from Last 3 Months or Most Recently Relevant to Health Maintenance Insurance [place] [employer] [facility] Care Teams Marketing Intelligence Manager Relationship Specialty Start Date End Date Eli Dave FNP- [address] [place] [address] PCP - General NURSE PRACTITIONER 05/25/18 Stephenie Knowles MD [address] [place] [address] Consulting Physician CARDIOVASCULAR DISEASE 02/25/24
--- OUTSIDE RECORDS SUMMARY | 2024-12-06 08:38 | XMS_ITS | Encounter Summary ---
Author Organization [facility] Address [address] [place] [address] Phone Care Team Providers Care Night Clerk Name Role Phone Eli Dave APRN Primary Care Provider [phone] [phone] Cherrie Stein APRN, MULTI SPINDLE OPERATOR Unavailable Reason for Visit * Reason Comments Medication Refill Encounter Details Date Type Department Care Team (Late st Contact Info) Description 09/08/2024 Refill [facility] - [facility] - [place] [address] [place] [address] Cherrie Stein APRN, MULTI SPINDLE OPERATOR [address] [place] [address] Medication Refill Social History Tobacco Use Types [...] Telephone Encounter - Helen Alexis RN - 09/08/2024 2:58 PM MATH AND SCIENCES DEPARTMENT CHAIR Medication refilled and signed per [facility] chronic medication standing order for pediatric and adult patients. AND SCIENCES DEPARTMENT CHAIR documented in this encounter Plan of Treatment Not on file documented as of this encounter Visit Diagnoses Diagnosis Gastroesophageal reflux disease Esophageal reflux documented in this encounter Care Teams Night Clerk Relationship Specialty Start Date End Date Eli Dave APRN [address] [address] PCP - General Certified Nurse Practitioner 09/16/19 Cherrie Stein APRN, MULTI SPINDLE OPERATOR [address] [place] [address] Nurse Practitioner Advanced Practice Nurse 01/13/23 documented as of this encounter
--- OUTSIDE RECORDS SUMMARY | 2024-12-06 08:38 | XMS_ITS | Encounter Summary ---
Author Organization [facility] Address [address] [place] [address] Phone Care Team Providers Care Cath Lab Tech Name Role Phone Eli Dave APRN Primary Care Provider [phone] [phone] Cherrie Stein APRN, DEAN OF WOMEN Unavailable Reason for Visit * Reason Comments Medication Refill Encounter Details Date Type Department Care Team (Late st Contact Info) Description 08/28/2022 Refill [facility] - Gastroenterology - [place] #2 [place] [address] Lucrecia Peterson PAC [address] [place] [address] Medication Refill Social History Tobacco Use Types [...] as of this encounter Plan of Treatment Not on file documented as of this encounter Visit Diagnoses Diagnosis Gastroesophageal reflux disease Esophageal reflux documented in this encounter Care Teams Cath Lab Tech Relationship Specialty Start Date End Date Eli Dave APRN [address] [facility] [address] [place] [address] PCP - General Certified Nurse Practitioner 09/16/19 Cherrie Stein APRN, DEAN OF WOMEN [address] [place] [address] Nurse Practitioner Advanced Practice Nurse 01/13/23 documented as of this encounter
--- OUTSIDE RECORDS SUMMARY | 2024-12-06 08:38 | XMS_ITS | Encounter Summary ---
Author Organization [facility] Address [address] [place] [address] Phone Care Team Providers Care Event Promoter Name Role Phone Eil Dave APRN Primary Care Provider [phone] [phone] Cherrie Stein APRN, COORDINATOR OF PLACEMENT Unavailable Reason for Visit * Reason Comments Medication Refill Encounter Details Date Type Department Care Team (Late st Contact Info) Description 03/31/2024 Refill [facility] - [facility] - [place] [address] [place] [address] Cherrie Stein APRN, COORDINATOR OF PLACEMENT [address] [place] [address] Medication Refill Social History Tobacco Use Types [...] Telephone Encounter - Helen Alexis RN - 04/02/2024 11:18 AM CDT Medication refilled and signed per [facility] chronic medication standing order for pediatric and adult patients. * Telephone Encounter - Helen Alexis RN - 04/02/2024 11:06 AM CDT Pharmacy requesting refill of: Requested Prescriptions Pending Prescriptions Disp Refills omeprazole (PriLOSEC) 40 MG CAPSULE DELAYED RELEASE [Pharmacy Med Name: Omeprazole 40 MG Oral Capsule Delayed Release] 90 Capsule 0 Sig: Take 1 capsule by mouth once daily Last fill: 12/15/2023 Patients last OV with GI: 01/13/2023 Next Office Visit with GI: none scheduled. Called patient to offer an appt. Appt scheduled for 04/23/2024. documented in this encounter Plan of Treatment Not on file documented as of this encounter Visit Diagnoses Diagnosis Gastroesophageal reflux disease Esophageal reflux documented in this encounter Care Teams Event Promoter Relationship Specialty Start Date End Date Eli Dave APRN [address] [address] PCP - General Certified Nurse Practitioner 09/16/19 Cherrie Stein APRN, COORDINATOR OF PLACEMENT [address] [place] [address] Nurse Practitioner Advanced Practice Nurse 01/13/23 documented as of this encounter
--- OUTSIDE RECORDS SUMMARY | 2024-12-06 08:38 | XMS_ITS | Encounter Summary ---
Author Organization [facility] Address [facility] [place] [address] [place] [address] Care Team Providers Care Epic Ambulatory Specialists Name Role Phone Eli Dave [facility] Primary Care Provider [phone] Seferino Mata MD Unavailable Unavailabl e Willa Osborne MD Unavailable Setphenie Perez MD Unavailable Encounter Details Date Type Department Care Team (Late st Contact Info) Description 06/16/2018 [facility] [address] [place] [id number] Seferino Mata MD Social History Tobacco Use [...] st Contact Info) Description 12/08/2024 10:00 AM AUTOMOTIVE TECHNOLOGY INSTRUCTOR [facility]ointment [facility] [place] [address] Stephenie Perez MD [address] [place] [address] 01/10/2025 1:15 PM CDT Office Visit [facility] [place] [address] Stephenie Perez MD [address] [place] [address] 10/21/2025 8:45 AM AUTOMOTIVE TECHNOLOGY INSTRUCTOR Office Visit [facility] [address] [place] [address] Stephenie Perez MD [address] [place] [address] documented as of this encounter Visit Diagnoses Not on filedocumented in this encounter Care Teams Epic Ambulatory Specialists Relationship Specialty Start Date End Date Eli Dave [facility] [address] [place] [id number] PCP - General NURSE PRACTITIONER 05/25/18 Seferino Mata MD [address] [place] [address] Holden Clinical Systems Analyst CARDIOVASCULAR DISEASE 05/25/18 02/24/24 Willa Osborne MD [address] [place] [address] Consulting Physician CARDIOVASCULAR DISEASE 02/07/21 1 Stephenie Perez MD [address] [place] [address] Consulting Physician CARDIOVASCULAR DISEASE 02/25/24 documented as of this encounter
--- OUTSIDE RECORDS SUMMARY | 2024-12-06 08:38 | XMS_ITS | Encounter Summary ---
Author Organization [facility] Address [address] [place] [address] Phone Care Team Providers Care Lumpia Wrapper Maker Name Role Phone Eli Dave APRN Primary Care Provider [phone] [phone] Cherrie Stein APRN, WOODEN TANK ERECTOR Unavailable Reason for Visit * Reason Comments Medication Refill Encounter Details Date Type Department Care Team (Late st Contact Info) Description 12/03/2021 Refill [facility] - [facility] - [place] #[address] [place] [address] Lucrecia Peterson, AGUSTIN [address] [place] [address] Medication Refill Social History Tobacco Use Types [...] file Not on file Not on file COVID-19 Exposure Response Date Recorded In the last month, have you been in contact with someone who was confirmed or suspected to have Coronavirus / COVID-19? No / Unsure 11/23/2021 8:24 AM DISTRIBUTION CENTER ASSOCIATE documented as of this encounter Miscellaneous Notes * Telephone Encounter - Helen Alexis RN - 12/04/2021 10:55 AM DISTRIBUTION CENTER ASSOCIATE Medication [facility] and [facility] order for pediatric and adult patients. RIBUTION CENTER ASSOCIATE documented in this encounter Plan of Treatment Not on file documented as of this encounter Visit Diagnoses Diagnosis Gastroesophageal reflux disease Esophageal reflux documented in this encounter Care Teams Lumpia Wrapper Maker Relationship Specialty Start Date End Date Eli Dave APRN [address] [address] PCP - General Certified Nurse Practitioner 09/16/19 Cherrie Stein APRN, WOODEN TANK ERECTOR [address] [place] [address] Nurse Practitioner Advanced Practice Nurse 01/13/23 documented as of this encounter
--- OUTSIDE RECORDS SUMMARY | 2024-12-06 08:38 | XMS_ITS | Encounter Summary ---
Author Organization [facility] Address [address] [place] [address] Phone Care Team Providers Care Pharmacy Customer Care Specialist Name Role Phone Eli Dave APRN Primary Care Provider [phone] [phone] Cherrie Stein APRN, SPEECH PATHOLOGIST ASSISTANT Unavailable Reason for Visit * Reason Comments Medication Refill Encounter Details Date Type Department Care Team (Late st Contact Info) Description 01/07/2023 Refill [facility] - Gastroenterology - [place] #[address] [place] [address] Lucrecia Peterson PAC [address] [place] [address] Medication Refill Social History Tobacco Use Types [...] Telephone Encounter - Helen Alexis RN - 01/07/2023 10:27 AM ORACLE BPM DEVELOPER Pharmacy requesting refill of: Requested Prescriptions Pending Prescriptions Disp Refills ??? omeprazole (PriLOSEC) 40 MG CAPSULE DELAYED RELEASE [Pharmacy Med Name: Omeprazole 40 MG Oral Capsule Delayed Release] 90 Capsule 0 Sig: Take 1 capsule by mouth once daily Last fill: 08/28/2022 Patients last OV with GI: 10/10/2021 Next Office Visit with GI: None scheduled. Called patient, appt scheduled for 01/13/2023. Omeprazole order pended for 90 days, please review and approve. LE BPM DEVELOPER documented in this encounter Plan of Treatment Not on file documented as of this encounter Visit Diagnoses Diagnosis Gastroesophageal reflux disease Esophageal reflux documented in this encounter Care Teams Pharmacy Customer Care Specialist Relationship Specialty Start Date End Date Eli Dave APRN [address] [address] PCP - General Certified Nurse Practitioner 09/16/19 Cherrie Stein APRN, SPEECH PATHOLOGIST ASSISTANT [address] [place] [address] Nurse Practitioner Advanced Practice Nurse 01/13/23 documented as of this encounter
--- OUTSIDE RECORDS SUMMARY | 2024-12-06 08:38 | XMS_ITS | Clinical Summary ---
Author Organization [facility] Address [address] [address] Phone Care Team Providers Care Agriculture Worker Name Role Phone TenzinEli Marquita ABDI Primary Care Provider [phone] Cherrie Stein APRN, EXPERIMENTAL AIRCRAFT MECHANIC Unavailable Allergies Active Allergy Reactions Criticality Noted Date Comments Penicillins Vomiting 09/16/2019 Nausea and vomiting Medications meloxicam (MOBIC) 7.5 MG Tablet TAKE 1 TABLET BY MOUTH TWICE DAILY WITH FOOD 1 9 Active metFORMIN (GLUCOPHAGE) 1000 MG Tablet TAKE 1 TABLET BY MOUTH TWICE DAILY WITH MORNING AND EVENING MEAL 1 9 Active hydroCHLOROthi azide 25 MG Tablet TAKE 1 TABLET BY MOUTH ONCE DAILY 1 9 Active losartan potassium-hydr ochlorothiazid e (HYZAAR) 100-25 MG Tablet TAKE 1 TABLET BY MOUTH ONCE DAILY 1 9 Active amLODIPine (NORVASC) 10 MG Tablet TAKE 1 TABLET BY MOUTH ONCE DAILY 1 9 Active gemfibrozil (LOPID) 600 MG Tablet Take 600 mg by mouth 2 times daily. 11 9 Active glipiZIDE (GLUCOTROL) 5 MG Tablet TAKE 1 TABLET BY MOUTH ONCE DAILY BEFORE MEAL 1 9 Active citalopram (CELEXA) 40 MG Tablet TAKE 1 TABLET BY MOUTH ONCE DAILY AT 3PM 1 9 Active ergocalciferol (VITAMIN D) 01237 UNIT Capsule TAKE 1 CAPSULE BY MOUTH ONCE A WEEK 0 9 Active carvedilol (COREG) 12.5 MG Tablet Take 12.5 mg by mouth 2 times daily. Active Jardiance 25 MG Tablet Take 25 mg by mouth daily. Active insulin detemir (Levemir FlexPen) 100 UNIT/ML Solution Pen-injector 17 Units by Subcutaneous route. 2 Active Gvoke HypoPen 2-Pack 1 MG/0.2ML Solution Auto-injector INJECT 1MG SUBCUTANEOUSLY A SINGLE DOSE; MAY REPEAT ONCE AFTER 15 MINUTES IF NO RESPONSE 4 Active omeprazole (PriLOSEC) 40 MG CAPSULE DELAYED RELEASEIndicat ions:Gastroeso phageal reflux disease Take 1 capsule by mouth once daily 90 Capsule 4 Active Active Problems Problem Noted Date Diagnosed Date Chronic gastritis without bleeding 10/10/2021 Esophageal stricture 10/10/2021 Long-term use of high-risk medication 10/10/2021 Hepatic steatosis 10/10/2021 Encounters Date Type Department Care Team Description 10/06/2024 Refill [facility] [address] [place] [address] Cherrie Stein APRN, CNP Medication Refill 09/08/2024 Refill [facility] [address] [place] [address] Cherrie Stein APRN, CNP Medication Refill from Last 3 Months Immunizations Immunization Administration Dates Next Due Influenza Vaccine, Quadrivalent, PF 08/09/2021,0 07/31/2016 Influenza Vaccine,unspecified Formulation 2015 Influenza, Injectable, Quadrivalent 08/21/2018 Influenza, Seasonal, Injectable, Undefined 08/25 Family History Medical History Relation Name Comments Diabetes Father Heart Attack Father Diabetes Mother Heart Attack Mother Relation Name Status Comments Father Mother Social History Tobacco Use Types Packs/Day Years Used Date Smoking Tobacco: Never Smokeless Tobacco: Never Tobacco Cessation:Counseling Given: Not Answered Alcohol Use Standard Drinks/Week Comments Not Currently [...] Sign Reading Time Taken Comments Blood Pressure 138/90 04/23/2024 10:38 AM CDT Pulse 69 04/23/2024 10:38 AM CDT Temperature 37 ??C (98.6 ??F) 04/23/2024 10: 38 AM CDT Respiratory Rate 14 04/23/2024 10:3 8 AM CDT Oxygen Saturation 99% 04/23/2024 10: 38 AM CDT Inhaled Oxygen Concentration - - Weight 81.6 kg (179 lb 12.8 oz) 024 10:38 AM CDT Height 165.1 cm (5' 5 ) 04/23/2024 10:3 8 AM CDT Body Mass Index 29.92 04/23/2024 10:38 AM CDT Plan of Treatment Health Maintenance Due Date Last Done Comments Hepatitis C Virus (HCV) Screening 1965 TdaP Immunization 1965 Hepatitis B Immunization (1 of 3 - 19+ 3-dose series) 1984 Cologuard 2015 Immunochemical Fecal Occult Blood 2015 Mammogram 2015 Pneumococcal Immunization (50+ years) (1 of 1 - PCV) 2015 Zoster Immunization (1 of 2) 2015 Influenza Immunization (#1) 2024 10/0 05/2021, 08/21/2018, 07/31/2016, Additional history exists SARS-COV-2 Immunization ( season) 2024 11/21/2021, 03/09/2021, 02/16/2021 Colonoscopy 03/08/2029 03/08/2019 Colorectal Cancer Screening 03/08/2029 Respiratory Syncytial Virus (RSV) Immunization (Adult) (1 - 1-dose 75+ series) 2040 03/08/2019 Meningococcal Immunization (ACWY) Aged Out No longer eligible based on patient's age to complete this topic Pneumococcal Immunization Combined Aged Out No longer eligible based on patient's age to complete this topic Rotavirus Immunization Aged Out No lo nger eligible based on patient's age to complete this topic Insurance MEDICARE C GOMEZ Care Teams Agriculture Worker Relationship Specialty Start Date End Date Eli Dave APRN [address] [facility] [address] [place] [address] PCP - General Certified Nurse Practitioner 09/16/19 Cherrie Stein APRN, EXPERIMENTAL AIRCRAFT MECHANIC [address] [place] [address] Nurse Practitioner Advanced Practice Nurse 01/13/23
--- OUTSIDE RECORDS SUMMARY | 2024-12-06 08:38 | XMS_ITS | Encounter Summary ---
Author Organization [facility] Address [address] [place] [address] Phone Care Team Providers Care Clam Bed Worker Name Role Phone Eli Dave APRN Primary Care Provider [phone] Cherrie Stein APRN, TERRAZZO WORKER APPRENTICE Unavailable Reason for Visit * Reason Comments Medication Refill Encounter Details Date Type Department Care Team (Late st Contact Info) Description 04/09/2022 Refill [facility] - [facility] - [place] [address] [place] [address] Lucrecia Peterson PAC [address] [place] [address] Medication Refill Social History Tobacco Use Types [...] reflux documented in this encounter Care Teams Clam Bed Worker Relationship Specialty Start Date End Date Eli Dave APRN [address] [facility] [address] [place] [address] PCP - General Certified Nurse Practitioner 09/16/19 Cherrie Stein APRN, TERRAZZO WORKER APPRENTICE [address] [place] [address] Nurse Practitioner Advanced Practice Nurse 01/13/23 documented as of this encounter
--- OUTSIDE RECORDS SUMMARY | 2024-12-06 08:38 | XMS_ITS | Encounter Summary ---
Author Organization [facility] Address [address] [place] [address] Phone Care Team Providers Care Combatant Diver Officer Name Role Phone Eli Dave APRN Primary Care Provider [phone] Cherrie Stein APRN, TRAIL MAINTENANCE WORKER Unavailable Reason for Visit * Reason Comments Medication Refill Encounter Details Date Type Department Care Team (Late st Contact Info) Description 10/09/2021 Refill [facility] - [facility] - [place] [address] [place] [address] Lucrecia Peterson, AGUSTIN [address] [place] [address] Medication Refill Social History Tobacco Use Types Packs/Day Years Used Date Smoking Tobacco: Never Smokeless Tobacco: Never Alcohol Use Standard Drinks/Week Comments Never 0 (1 standard drink = 0.6 oz pur e alcohol) AUDIT-C Answer Date Recorded Frequency of Alcohol Consumption Never 09/16/2019 Average Number of Drinks Not on file 019 Frequency of Binge Drinking Not on file 09/03 Comments No Sex and Gender Information Value [...] have Coronavirus / COVID-19? No / Unsure 10/10/2021 1:04 PM TREATMENT COUNSELOR documented as of this encounter Miscellaneous Notes * Telephone Encounter - Helen Alexis RN - 10/10/2021 4:53 PM TREATMENT COUNSELOR Medication refilled and signed per [facility] chronic medication standing order for pediatric and adult patients. TMENT COUNSELOR documented in this encounter Plan of Treatment Not on file documented as of this encounter Visit Diagnoses Diagnosis Gastroesophageal reflux disease Esophageal reflux documented in this encounter Care Teams Combatant Diver Officer Relationship Specialty Start Date End Date Eli Dave APRN [address] [address] PCP - General Certified Nurse Practitioner 09/16/19 Cherrie Stein APRN, TRAIL MAINTENANCE WORKER [address] [place] [address] Nurse Practitioner Advanced Practice Nurse 01/13/23 documented as of this encounter
[2024-12-06 09:05] LABS: Creatinine Urine 46.93 mg/dL (40-278); MALB Creatinine Ratio 27.7 mg/g (0-30); Microalbumin Urine Random < 13.0 mg/L
[2024-12-06 09:41] LABS: Alanine Aminotransferase 22 U/L (14-59); Albumin Level 3.7 g/dL (3.4-5.0); Alkaline Phosphatase 104 U/L (46-116); Anion Gap 8 mmol/L (4-12); Aspartate Amino Transferase 16 U/L (15-37); Bilirubin,Total 0.5 mg/dL (0.00-1.00); Blood Urea Nitrogen 15 mg/dL (7-18); Calcium 9.3 mg/dL (8.5-10.1); Carbon Dioxide 28 mmol/L (21-32); Chloride 101 mmol/L (98-108); Cholesterol 237 mg/dL (0-200); Estimated Glomerular Filt Rate > 60; Free T4 Free Thyroxine 0.93 ng/dL (0.76-1.46); Glucose 167 mg/dL (70-99); HDL Direct 32 mg/dL (40-60); Osmolality Calculated 288 mOsm/kg (285-295); Potassium 4.4 mmol/L (3.5-5.1); Sodium 137 mmol/L (136-145); Thyroid Stimulating Hormone 4.57 uIU/mL (0.36-3.74); Total Protein 7.3 g/dL (6.4-8.2); Vitamin B12 253 pg/mL (193-986)
[2024-12-06 09:42] LABS: LDL Cholesterol Calculated 85 mg/dL (<130); LDL Cholesterol Direct 90 mg/dL (0-130); Triglycerides 600 mg/dL (0-150)
[2024-12-08 09:03] LABS: Vitamin D 25 Hydroxy 21 ng/mL (30-100)
== END 2024-12-06 08:24 | disposition home or self-care (01) ==
LOC: CHSLAB 08:27
PROVIDERS: PCP Physician Assistant; Visit Provider Internal Medicine
DX: E78.1 Pure hyperglyceridemia (principal); E55.9 Vitamin D deficiency, unspecified; I10 Essential (primary) hypertension; E78.5 Hyperlipidemia, unspecified; E11.9 Type 2 diabetes mellitus without complications
CPT/HCPCS: 36415; 80053; 80061; 82043; 82306; 82607; 83721; 84439; 84443